=== PATIENT | female | born 1985 | race Caucasian/White ===

== ENCOUNTER 2020-07-14 23:55 | Emergency (ER) | payer SELFPAY ==
[2020-07-15 00:01] VITALS: BP 119/83; PULSE 81; RESP 16; TEMP 36.4; O2SAT 97; BMI 24.7
--- NOTE | 2020-07-15 00:50 | W.ED.SKABFB ---
HPI - Skin/Abscess/Foreign Bdy General: Chief complaint: Skin/Abscess/Foreign Body Stated complaint: Bitten on r foot Time Seen by Provider: 07/15/20 00:19 History of Present Illness: HPI narrative: Patient comes in for bite to the right ankle area that occurred about 3 hours prior to arrival to the ER. They believe it might've been a steak. Patient has some mild swelling and redness to the lateral ankle. Patient is alert and oriented responding appropriately to questioning. MD complaint: other (Possible snakebite) Onset (ago): hour(s) Location: R foot Severity: moderate Quality: burning Review of Systems General: Reports: 10 or more systems reviewed and unremarkable except in HPI and below Physical Exam Const: COMMON NORMALS: no acute distress and patient oriented x3 GENERAL APPEARANCE: cooperative HENMT: COMMON NORMALS: normocephalic and Normal external nose present HEAD & SCALP: normal to inspection and normocephalic NOSE: Normal external nose present Eye: GENERAL EYE: appearance normal, both eyes and all related structures Neck/C-Spine: COMMON NORMALS: full ROM Lymph: LYMPHATIC: no lymphadenopathy noted Chest: COMMONS NORMALS: normal inspection of the chest Resp: COMMON NORMALS: normal respiratory effort EFFORT & INSPECTION: Yes able to speak in complete sentences Cardio: COMMON NORMALS: regular rate and regular rhythm RATE: regular rate RHYTHM: regular rhythm GI: COMMON NORMALS: non-tender Back/Pelvis: COMMON NORMALS: thoracic and lumbar spine normal to inspection Extremity: NARRATIVE EXTREMITY EXAM: 2 puncture wounds noted to the lateral ankle, minimal swelling and redness is noted to the area. Neuro: COMMON NORMALS: patient oriented x3 and moves all extremities Psych: COMMON NORMALS: mental status grossly normal and cooperative Skin: COMMON NORMALS: no rashes or lesions noted GENERAL SKIN EXAM: no rashes or lesions noted Course Vital Signs: Vital signs: Vital Signs Temperature 97.5 F L 07/15/20 00:01 Pulse Rate 81 07/15/20 00:01 Respiratory Rate 16 07/15/20 00:01 Blood Pressure 119/83 07/15/20 00:01 Pulse Oximetry 97 07/15/20 00:01 MDM - Skin/Abscess/Foreign Bdy MDM Narrative: Medical decision making narrative: 35-year-old female comes in today for concerns of a bite to the right lateral ankle. On exam patient has 2 puncture areas is suggestive of a snakebite. The alonso are approximately 11 mm apart. Minimal to no ecchymosis is noted. Incident occurred about 3 hours prior to arrival to the ER. Swelling was noted to the foot no redness was obviously seen. Differential diagnosis includes but not limited to snakebite, insect sting, anaphylaxis. Vital signs were normal. Laboratory values noted no significant abnormalities. CPK and fibrinogen within normal range. Patient was treated for pain. Reviewed recommendations for treatment for snakebite. Patient reported understanding agreed to plan. Lab Data: Labs: Lab Results 07/15/20 07/15/20 07/15/20 Range/Units 00:57 00:57 00:57 WBC 10.1 H (4.0-10.0) 10^3/ uL RBC 4.63 (4.1-5.3) 10^6/u L Hgb 14.5 (11.5-15.3) g/dL Hct 43.8 (37.0-47.0) % MCV 94.6 (81-99) fL MCH 31.3 (28.0-34.0) pg MCHC 33.1 (30.0-36.0) g/dL RDW 12.4 (12.1-15.1) % Plt Count 160 (130-400) 10^3/c mm MPV 12.4 H (7.4-10.4) fL Neut % (Auto) 64.2 % Lymph % (Auto) 24.6 % [place] % (Auto) 6.4 % Eos % (Auto) 3.8 % Baso % (Auto) 0.8 % Neut # (Auto) 6.47 (1.8-7.7) 10^3/u L Lymph # (Auto) 2.5 (0.8-4.8) 10^3/u L [place] # (Auto) 0.6 (0.2-0.9) 10^3/u L Eos # (Auto) 0.4 (0.0-0.8) 10^3/u L Baso # (Auto) 0.1 (0.0-0.1) 10^3/u L Nucleated RBC % (a uto) 0 % Nucleated RBCs # 0.0 /100WBC Fibrinogen 309 (174-498) mg/dL Sodium 140 (136-145) mmol/L Potassium 3.2 L (3.5-5.1) mmol/L Chloride 103 (98-107) mmol/L Carbon Dioxide 28 (22-29) mmol/L Anion Gap 12.2 (5-19) BUN 10 (6-20) mg/dL Creatinine 0.7 (0.5-0.9) mg/dL GFR Calculation 96.4 (90-130) mL/min Glucose 98 (65-115) mg/dL Calculated Osmolal ity 289 (285-295) mOsm/k g Calcium 8.6 (8.5-10.5) mg/dL Total Bilirubin 0.2 (0.15-1.2) mg/dL AST 12 (0-32) U/L ALT 11 (0-33) U/L Alkaline Phosphata se 54 (35-105) IU/L Creatine Kinase (26-192) U/L Total Protein 6.5 L (6.6-8.7) g/dL Albumin 4.1 (3.5-5.2) g/dL Globulin 2.4 (1.3-4.6) g/dL 07/15/20 Range/Units 00:57 WBC (4.0-10.0) 10^3/ uL RBC (4.1-5.3) 10^6/u L Hgb (11.5-15.3) g/dL Hct (37.0-47.0) % MCV (81-99) fL MCH (28.0-34.0) pg MCHC (30.0-36.0) g/dL RDW (12.1-15.1) % Plt Count (130-400) 10^3/c mm MPV (7.4-10.4) fL Neut % (Auto) % Lymph % (Auto) % [place] % (Auto) % Eos % (Auto) % Baso % (Auto) % Neut # (Auto) (1.8-7.7) 10^3/u L Lymph # (Auto) (0.8-4.8) 10^3/u L [place] # (Auto) (0.2-0.9) 10^3/u L Eos # (Auto) (0.0-0.8) 10^3/u L Baso # (Auto) (0.0-0.1) 10^3/u L Nucleated RBC % (a uto) % Nucleated RBCs # /100WBC Fibrinogen (174-498) mg/dL Sodium (136-145) mmol/L Potassium (3.5-5.1) mmol/L Chloride (98-107) mmol/L Carbon Dioxide (22-29) mmol/L Anion Gap (5-19) BUN (6-20) mg/dL Creatinine (0.5-0.9) mg/dL GFR Calculation (90-130) mL/min Glucose (65-115) mg/dL Calculated Osmolal ity (285-295) mOsm/k g Calcium (8.5-10.5) mg/dL Total Bilirubin (0.15-1.2) mg/dL AST (0-32) U/L ALT (0-33) U/L Alkaline Phosphata se (35-105) IU/L Creatine Kinase 84 (26-192) U/L Total Protein (6.6-8.7) g/dL Albumin (3.5-5.2) g/dL Globulin (1.3-4.6) g/dL Discharge Plan Discharge Patient Disposition: Home Clinical Impression: Bite, snake, venomous Qualifiers: Encounter type: initial encounter Injury intent: accidental or unintentional Qualified Code(s): T63.001A - Toxic effect of unspecified snake venom, accidental (unintentional), initial encounter Condition: Stable Prescriptions: New hydrocodone-acetaminophen 5-325 mg tablet 1 tab PO Q6H PRN (Reason: pain (scale score 7-10)) Qty: 15 RF: 0 Discharge Orders: Discharge ED (Routine); Ordered 07/15/20 Ordered By: Saurabh Ulrich Referrals: Heena Elias APN [Primary Care Provider] - Discharge Diet: Usual diet Discharge Activity: Increase activity as tolerated Patient Instructions: Snake Bite (ED), Opioid Safety Activity Restrictions/Additional Instructions: Home and rest. Elevate foot. Drink plenty of water. Increase activity as tolerated. Use crutches until you can walk comfortably on it. Follow-up with primary care in 3 days for recheck. Return to the ER for new concerns. Coding Level of Care Code ED [employer] Exam Comprehensive
[2020-07-15 01:14] LABS: Basophils # 0.1 10^3/uL (0.0-0.1); Basophils % 0.8 %; Eosinophils # 0.4 10^3/uL (0.0-0.8); Eosinophils % 3.8 %; Hematocrit 43.8 % (37.0-47.0); Hemoglobin 14.5 g/dL (11.5-15.3); Lymphocytes # 2.5 10^3/uL (0.8-4.8); Lymphocytes % 24.6 %; Mean Corpuscular HGB Conc 33.1 g/dL (30.0-36.0); Mean Corpuscular Hemoglobin 31.3 pg (28.0-34.0); Mean Corpuscular Volume 94.6 fL (81-99); Mean Platelet Volume 12.4 fL (7.4-10.4); Monocytes # 0.6 10^3/uL (0.2-0.9); Monocytes % 6.4 %; Neutrophils # 6.47 10^3/uL (1.8-7.7); Neutrophils % 64.2 %; Nucleated Red Blood Cells % 0 %; Platelet Count 160 10^3/cmm (130-400); Red Blood Count 4.63 10^6/uL (4.1-5.3); Red Cell Distribution Width 12.4 % (12.1-15.1); White Blood Count 10.1 10^3/uL (4.0-10.0)
[2020-07-15 01:19] LABS: Fibrinogen 309 mg/dL (174-498)
[2020-07-15 01:22] LABS: Alanine Aminotransferase 11 U/L (0-33); Albumin Level 4.1 g/dL (3.5-5.2); Alkaline Phosphatase 54 IU/L (35-105); Anion Gap 12.2 (5-19); Aspartate Amino Transferase 12 U/L (0-32); Blood Urea Nitrogen 10 mg/dL (6-20); Calcium 8.6 mg/dL (8.5-10.5); Carbon Dioxide 28 mmol/L (22-29); Chloride 103 mmol/L (98-107); Creatinine Clr Calc Pharmacy 102.5736; Globulin 2.4 g/dL (1.3-4.6); Glomerular Filtration Rate 96.4 mL/min (90-130); Glucose 98 mg/dL (65-115); Osmolality Calculated 289 mOsm/kg (285-295); Potassium 3.2 mmol/L (3.5-5.1); Sodium 140 mmol/L (136-145); Total Bilirubin 0.2 mg/dL (0.15-1.2); Total Protein 6.5 g/dL (6.6-8.7)
[2020-07-15 01:38] LABS: Creatine Phosphokinase 84 U/L (26-192)
[2020-07-15 02:17] VITALS: BP 116/74; PULSE 76; RESP 16; O2SAT 97
[2020-07-15] MEDS: HYDROcodone-acetaminophen 7.5-325 mg Tablet 1 TAB PO (02:19)
== END 2020-07-15 02:10 | disposition home or self-care (01) ==
PROVIDERS: Emergency Provider Nurse Practitioner Family; PCP Nurse Practitioner Family
DX: T63.001A Toxic effect of unspecified snake venom, accidental (unintentional), initial encounter (principal)
CPT/HCPCS: 36415; 80053; 82550; 85025; 85384; 99283

== ENCOUNTER → 2024-07-15 10:40 | Outpatient (BNVA) | payer OTHER, SELFPAY | PROVIDERS: PCP Nurse Practitioner Family; Visit Provider Emergency Medicine | DX: R30.0 Dysuria (principal); R39.9 Unspecified symptoms and signs involving the genitourinary system | CPT/HCPCS: 81000; 87086 ==